=== PATIENT | female | born 2000 | race Caucasian/White ===

== ENCOUNTER 2023-02-02 07:29 | Emergency (ER) | payer MEDICAID ==
[~2023-02-02] VITALS: Ht 160 cm; Wt 67.1 kg
[2023-02-02 07:52] VITALS: BP 100/65; PULSE 78; RESP 18; TEMP 97.3; O2SAT 98
[2023-02-02 08:48] LABS: BASOPHILS % (AUTO) 0.2 % (0.0-2.0); EOSINOPHILS % (AUTO) 0.1 % (0.0-4.0); HEMATOCRIT 39.7 % (36-48); LYMPHOCYTES # (AUTO) 0.8 K/uL (2.5-16.5); LYMPHOCYTES % (AUTO) 5.3 % (20.5-51.1); MEAN CORPUSCULAR HEMOGLOBIN 26 pg (27-31); MEAN CORPUSCULAR HGB CONC 33 g/dL (33-37); MEAN CORPUSCULAR VOLUME 80.5 fL (80-94); MONOCYTES # (AUTO) 0.8 K/uL (0.8-1.0); MONOCYTES % (AUTO) 5.2 % (1.7-9.3); NEUTROPHILS # (AUTO) 13.3 K/uL (1.8-7.7); NEUTROPHILS % (AUTO) 89.2 % (42.2-75.2); PLATELET COUNT (AUTO) 199 K/uL (140-450); RED BLOOD CELL COUNT(AUTO) 4.93 MIL/uL (4.20-5.40); RED CELL DISTRIBUTION WIDTH 14.3 % (11.6-13.7); WHITE BLOOD COUNT (AUTO) 14.9 K/uL (4.5-11.0)
[2023-02-02 09:01] LABS: APPEARANCE,URINE CLEAR (CLEAR); BILIRUBIN,URINE 1+ (NEGATIVE); BLOOD, URINE 3+ (NEGATIVE); COLOR,URINE YELLOW (YELLOW); LEUKOCYTE ESTERASE ,URINE TRACE (NEGATIVE); NITRITE, URINE POSITIVE (NEGATIVE); PROTEIN,URINE 2+ (NEGATIVE); UGLUCOSE NEGATIVE (NEGATIVE)
[2023-02-02 09:02] LABS: ALBUMIN 4.3 g/dL (3.4-5.0); ANION GAP 12.7 (8-16); CALCIUM 8.8 mg/dL (8.5-10.1); CARBON DIOXIDE 27.2 mmol/L (21-32); CREATININE 0.5 mg/dL (0.6-1.3); POTASSIUM 3.9 mmol/L (3.5-5.1); TOTAL BILIRUBIN 0.5 mg/dL (0.0-1.0); TOTAL PROTEIN, SERUM 7.8 g/dL (6.4-8.2)
[2023-02-02 09:18] LABS: BACTERIA,URINE 1+ /HPF (None Seen); ICTOTEST NEGATIVE (NEGATIVE); RBC,URINE 80-100 /HPF (0-5); SQUAMOUS EPITHELIAL CELL,UR 4-10 (MOD) /LPF (0-3 (FEW)); WBC,URINE 0-5 /HPF (0-5)
[2023-02-02] MEDS ORDERED: metroNIDAZOLE 500 MG/NS PREMIX 100 ML IV ONE (10:05)
[2023-02-02] MEDS ORDERED: cefTRIAXone 1,000 MG VIAL ONE (10:16)
[2023-02-02 11:01] VITALS: O2SAT 98
[2023-02-02 13:01] VITALS: O2SAT 98
[2023-02-02 15:01] VITALS: O2SAT 98
[2023-02-02 16:16] VITALS: BP 103/62; PULSE 71; RESP 16; TEMP 97.4; O2SAT 98
== END 2023-02-02 16:16 | disposition short-term general hospital (02) ==
LOC: MED 07:29
DX: K35.80 Unspecified acute appendicitis (principal); R11.10 Vomiting, unspecified; Z88.0 Allergy status to penicillin
CPT/HCPCS: 36415; 74177; 76856; 80053; 81001; 81025; 83605; 83690; 85025; 87040; 93976; 96365; 96368; 99285; J0696; J3490; Q0092; Q9967

== ENCOUNTER 2023-02-27 18:41 | Emergency (ER) | payer MEDICAID ==
[~2023-02-27] VITALS: Ht 160 cm; Wt 68.5 kg
[2023-02-27 19:03] VITALS: BP 121/67; PULSE 83; RESP 20; TEMP 98.1; O2SAT 99
== END 2023-02-27 21:16 | disposition left against medical advice (07) ==
LOC: MED 18:41
DX: K92.1 Melena (principal); Z53.21 Procedure and treatment not carried out due to patient leaving prior to being seen by health care provider
CPT/HCPCS: 99281

== ENCOUNTER 2023-08-16 08:33 | Emergency (ER) | payer MEDICAID, OTHER ==
[~2023-08-16] VITALS: Ht 165.1 cm; Wt 72.1 kg
[2023-08-16 08:42] VITALS: BP 97/51; PULSE 72; RESP 16; TEMP 98.1; O2SAT 98
[2023-08-16] MEDS: NACL 0.9% 1,000 ML IV ONE (10:21)
[2023-08-16 10:25] LABS: BASOPHILS % (AUTO) 0.6 % (0.0-2.0); EOSINOPHILS # (AUTO) 0.1 K/uL (0-0.4); EOSINOPHILS % (AUTO) 2.1 % (0.0-4.0); HEMATOCRIT 38.9 % (36-48); HEMOGLOBIN 13.1 g/dL (12.0-16.0); LYMPHOCYTES # (AUTO) 1.6 K/uL (2.5-16.5); MEAN CORPUSCULAR HEMOGLOBIN 27 pg (27-31); MEAN CORPUSCULAR HGB CONC 34 g/dL (33-37); MEAN CORPUSCULAR VOLUME 80.7 fL (80-94); MONOCYTES # (AUTO) 0.5 K/uL (0.8-1.0); MONOCYTES % (AUTO) 7.4 % (1.7-9.3); NEUTROPHILS # (AUTO) 4.1 K/uL (1.8-7.7); NEUTROPHILS % (AUTO) 64.9 % (42.2-75.2); PLATELET COUNT (AUTO) 194 K/uL (140-450); RED BLOOD CELL COUNT(AUTO) 4.82 MIL/uL (4.20-5.40); RED CELL DISTRIBUTION WIDTH 14.6 % (11.6-13.7); WHITE BLOOD COUNT (AUTO) 6.3 K/uL (4.5-11.0)
[2023-08-16 10:33] LABS: ANION GAP 9.3 (8-16); CALCIUM 8.7 mg/dL (8.5-10.1); CARBON DIOXIDE 28.8 mmol/L (21-32); CREATININE 0.7 mg/dL (0.6-1.3); POTASSIUM 4.1 mmol/L (3.5-5.1)
[2023-08-16 11:50] VITALS: BP 100/60; PULSE 70; RESP 18; TEMP 98.3; O2SAT 97
== END 2023-08-16 08:58 | disposition home or self-care (01) ==
LOC: MED 08:33
DX: R59.1 Generalized enlarged lymph nodes (principal); Z88.0 Allergy status to penicillin; Z79.899 Other long term (current) drug therapy; Z90.49 Acquired absence of other specified parts of digestive tract
CPT/HCPCS: 36415; 80048; 85025; 96360; 99283; J7030